=== PATIENT | female | born 1945 | race Caucasian/White ===

== ENCOUNTER → 2016-07-29 | Outpatient (CLI) | payer BC ==
--- NOTE | 2016-07-29 14:31 | KCIC ---
UPPER EXT JOINT WO CONT LEFT dated 07/29/2016 12:30 PM Indication: Worsening left wrist pain , pain for several weeks possible tenosynovitis Comparison: No comparison is available. Technique: Routine multiplanar multisequence imaging performed. No contrast administered. Findings: There is thickening and increased signal of the abductor pollicis longus and extensor pollicis brevis tendons near the level of the radial styloid. There is associated tendon sheath fluid. Moderate hypertrophic spurring at the first carpometacarpal joint with mild radial subluxation of the first metacarpal relative to the trapezium. Moderate hypertrophic changes are also noted at the scaphotrapezial joint. There is mild edema within the marrow of the trapezium and base of first metacarpal. Flexor and extensor tendons are otherwise intact. Carpal tunnel and Guyon's canal unremarkable. Mild degenerative change and chondral malacia at the radiocarpal joint and mid carpal row with scattered areas of subchondral cystic change. No significant joint effusion or loose body. There is mild thinning and surface irregularity of the TFCC central articular disc. No definite perforation. The styloid and foveal attachments are intact. The volar and dorsal radioulnar ligamentous attachments are intact. There is some increased signal at the membranous portion of the scapholunate ligament. The dorsal and volar ligamentous attachments are intact. No scapholunate dissociation. Lunotriquetral ligament grossly intact. IMPRESSION: 1. Tenosynovitis of the abductor pollicis longus and extensor pollicis brevis tendons near the level of the radial styloid. 2. 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 Adjacent osteophytes could be the source of tenosynovitis. 3. Chronic degeneration versus tear of the TFC central articular disc. The dorsal and volar radial ulnar ligaments are intact 4. Suspect degenerative perforation of the central membranous portion of the scapholunate ligament. No dorsal or volar ligament tear or scapholunate dissociation. Electronically signed by: Jay Gao MD (07/29/2016 2:27 PM)
== END | disposition home or self-care (01) ==
LOC: KCIC MRI 12:02
PROVIDERS: ATTEND Orthopaedic Surgery Sports Medicine
DX: M65.4 Radial styloid tenosynovitis [de Quervain] (principal); M18.9 Osteoarthritis of first carpometacarpal joint, unspecified
CPT/HCPCS: 73221

== ENCOUNTER 2017-03-19 14:38 | Emergency (ER) | payer BC | END 2017-03-19 15:10 | disposition home or self-care (01) | LOC: ER 14:38 | DX: B35.4 Tinea corporis (principal); F41.9 Anxiety disorder, unspecified; M19.90 Unspecified osteoarthritis, unspecified site; F32.9 Major depressive disorder, single episode, unspecified; E11.9 Type 2 diabetes mellitus without complications; I10 Essential (primary) hypertension; M79.7 Fibromyalgia; Z88.0 Allergy status to penicillin; Z90.49 Acquired absence of other specified parts of digestive tract; Z90.710 Acquired absence of both cervix and uterus; Z88.8 Allergy status to other drugs, medicaments and biological substances | CPT/HCPCS: 99282 ==

== ENCOUNTER 2017-07-02 19:07 | Emergency (ER) | payer BC | END 2017-07-02 19:58 | disposition home or self-care (01) | LOC: ER 19:07 | DX: J40 Bronchitis, not specified as acute or chronic (principal); I10 Essential (primary) hypertension; E11.9 Type 2 diabetes mellitus without complications; M79.7 Fibromyalgia; Z88.0 Allergy status to penicillin; Z88.8 Allergy status to other drugs, medicaments and biological substances | CPT/HCPCS: 99284 ==

== ENCOUNTER → 2018-03-28 | Outpatient (CLI) | payer BC ==
[2017-07-02 19:17] VITALS: BP 169/79
[~2018-03-28] MED LIST: ACET-704 PO; AZIT250T6 PO; BENZ100C PO
--- NOTE | 2018-03-28 17:12 | KCIC ---
Bilateral digital screening mammograms with 3-D tomosynthesis: Reason for examination: Routine screening. No previous exams for comparison. New baseline. Bilateral mammograms in CC and oblique projections were obtained with 2-D imaging and 3-D tomosynthesis imaging on a Siemens Inspiration unit and reviewed on the workstation. Interpretation was made with the benefit of CAD. The skin and nipples show no abnormalities. No abnormal axillary lymph nodes are seen. The breast parenchyma is predominantly fatty. (Breast density: Category A.) There are no dominant masses, suspicious calcifications or architectural distortion. Benign calcifications are present. Impression: No evidence of malignancy. Recommend routine screening. BI-RAD Category 2: Benign. "Our facility is accredited by the [employer] Mammography Program." This patient's information has been entered into a reminder system for the patient to be notified with the results of her examination and a target date for the next mammogram. Electronically signed by: Carmen Howard MD (03/28/2018 5:08 PM) [id number]
== END | disposition home or self-care (01) ==
LOC: KCIC MAMMO 14:57
PROVIDERS: ATTEND Physician Assistant Surgical
DX: Z12.31 Encounter for screening mammogram for malignant neoplasm of breast (principal)
CPT/HCPCS: 77063; 77067

== ENCOUNTER 2019-03-18 14:52 | Emergency (ER) | payer BC ==
[~2019-03-18] VITALS: Ht 157.5 cm; Wt 89.8 kg
[2019-03-18 15:30] VITALS: BP 145/69
[2019-03-18] MEDS ORDERED: BENZ100C PO (15:57)
[2019-03-18] MEDS ORDERED: PRED50TA PO (15:57)
[2019-03-18] MEDS ORDERED: AZIT250T6 PO (15:57)
--- NOTE | 2019-03-18 15:57 | PHYS DOC ---
Past Medical History Past Medical History: Arthritis (FRANKY GOFF APRN) Past Surgical History: Cholecystectomy, Hysterectomy (JASWINDERFRANKY Urban APRN) Alcohol Use: None Drug Use: None (DENVERFRANKY MARTHA) Adult General Chief Complaint Chief Complaint: SORE THROAT HPI HPI Patient is a 74 year old female who presents to the ED today with a sore throat that began one week ago. Patient is also complaining of a slight cough. Denies any fever or congestion. (DENVERFRANKY MARTHA) Review of Systems Review of Systems Constitutional: Denies fever or chills [] Eyes: Denies change in visual acuity, redness, or eye pain [] HENT: Reports sore throat. Denies nasal congestion Respiratory: Reports cough, denies shortness of breath [] Cardiovascular: No additional information not addressed in HPI [] GI: Denies abdominal pain, nausea, vomiting, bloody stools or diarrhea [] : Denies dysuria or hematuria [] Musculoskeletal: Denies back pain or joint pain [] Integument: Denies rash or skin lesions [] Neurologic: Denies headache, focal weakness or sensory changes [] All other systems were reviewed and found to be within normal limits, except as documented in this note. (JASWINDERFRANKY Urban APRN) Allergies Allergies Allergies Coded Allergies Type Severity Reaction Last Updated Verified Penicillins Allergy Intermediate 03/19/17 Yes duloxetine Allergy Intermediate 03/19/17 Yes pregabalin Allergy Intermediate 03/19/17 Yes (ELBA WALKER DO) Physical Exam Physical Exam Constitutional: Well developed, well nourished, no acute distress, non-toxic appearance. [] HENT: Normocephalic, atraumatic, bilateral external ears normal, oropharynx moist, no oral exudates, nose normal. Midline uvula, posterior pharynx with mild erythema, no exudate. +2 anterior cervical adenopathy. Eyes: PERRLA, EOMI, conjunctiva normal, no discharge. [] Neck: Normal range of motion, no tenderness, supple, no stridor. [] Cardiovascular:Heart rate regular rhythm, no murmur [] Lungs & Thorax: Bilateral breath sounds clear to auscultation [] Abdomen: Bowel sounds normal, soft, no tenderness, no masses, no pulsatile masses. [] Skin: Warm, dry, no erythema, no rash. [] Back: No tenderness, no CVA tenderness. [] Extremities: No tenderness, no cyanosis, no clubbing, ROM intact, no edema. [] Neurologic: Alert and oriented X 3, normal motor function, normal sensory function, no focal deficits noted. [] Psychologic: Affect normal, judgement normal, mood normal. [] (FRANKY GOFF APRN) Current Patient Data Vital Signs Vital Signs Date Time Temp Pulse Resp B/P (MAP) Pulse Ox O2 Delivery O2 Flow Rate FiO2 03/18/19 15:30 97.2 117 18 145/69 (94) 92 Room Air 97.2 (ELBA WALKER DO) Lab Values Laboratory Tests Test 03/18/19 15:33 Group A Streptococcus Rapid Positive (NEGATIVE) (ELBA WALKER DO) EKG EKG [] (FRANKY GOFF APRN) Radiology/Procedures Radiology/Procedures [] (FRANKY GOFF APRN) Course & Med Decision Making Course & Med Decision Making Pertinent Labs and Imaging studies reviewed. (See chart for details) This is a 74-year-old female patient with sore throat for one week. Positive rapid strep. Discharged with azithromycin. Tylenol/Motrin for pain or fever. Follow-up with primary care doctor in 1-2 weeks. (FRANKY GOFF APRN) Dragon Disclaimer Dragon Disclaimer This electronic medical record was generated, in whole or in part, using a voice recognition dictation system. (FRANKY GOFF APRN) Departure Departure Impression: Primary Impression: Strep throat Additional Impression: Cough Disposition: 01 HOME, SELF-CARE Condition: STABLE Referrals: KIMMY BECKFORD (PCP) follow up in 1 week Patient Instructions: Cough, Adult, [id number], Strep Throat Additional Instructions: You have strep infection. We put you on antibiotics, ensure you complete them. F ollow-up with your doctor in 1-2 weeks. Use saltwater gargles as needed for sore throat. Scripts Prednisone (PREDNISONE) 50 Mg Tablet 1 TAB PO DAILY, #5 TAB Prov: FRANKY GOFF APRN 03/18/19 Benzonatate (TESSALON PERLE) 100 Mg Capsule 1 CAP PO TID, #30 CAP Prov: FRANKY GOFF APRN 03/18/19 Azithromycin (AZITHROMYCIN TABLET) 250 Mg Tablet 1 PKG PO UD for 5 Days, #6 TAB 0 Refills 2 the first day followed by 1 for days 2-5 Prov: FRANKY GOFF APRN 03/18/19 Attending Signature Attending Signature I have reviewed the PA/FAMILY PRESERVATION OFFICER's note and plan of care. I was available for consultation as needed during the patient's visit in the emergency department. I agree with the clinical impression, plan, and disposition. (ELBA WALKER DO) Problem Qualifiers FRANKY GOFF APRN Mar 18, 2019 15:57 ELBA WALKER DO Mar 19, 2019 11:01
== END 2019-03-18 16:01 | disposition home or self-care (01) ==
LOC: ER 14:52
DX: J02.0 Streptococcal pharyngitis (principal); R05 Cough; Z88.0 Allergy status to penicillin; Z88.8 Allergy status to other drugs, medicaments and biological substances
CPT/HCPCS: 87880; 99283

== ENCOUNTER 2020-01-24 19:34 | Emergency (ER) | payer BC ==
[~2020-01-24] VITALS: Ht 157.5 cm; Wt 91.8 kg
[~2020-01-24 19:34] MED LIST changes: +PRED50TA PO
[2020-01-24] MEDS ORDERED: fentaNYL PF VIAL 100 MCG/2 ML VIAL IM ONE (20:00)
--- NOTE | 2020-01-24 20:24 | PHYS DOC ---
Past Medical History Past Medical History: Arthritis Past Surgical History: Cholecystectomy, Hysterectomy Smoking Status: Never Smoker Alcohol Use: None Drug Use: None General Adult EDM: Chief Complaint: MECHANICAL FALL HPI: HPI: Patient is a 75 year old female past medical history arthritis presents for mariposa luation of back and buttocks pain after a fall. Patient had a mechanical fall on . She fell directly onto her buttocks. Patient complains of lumbar midline lumbar pain as well as coccyx pain. Patient does have the discomfort that radiates down her left leg. Patient ambulated into the ER with a normal steady gait. She has had no loss of bowel or bladder she has no saddle anesthesia. Review of Systems: Review of Systems: Constitutional: Denies fever or chills. [] Eyes: Denies change in visual acuity. [] HENT: Denies nasal congestion or sore throat. [] Respiratory: Denies cough or shortness of breath. [] Cardiovascular: Denies chest pain or edema. [] GI: Denies abdominal pain, nausea, vomiting, bloody stools or diarrhea. [] : Denies dysuria. [] Musculoskeletal: Positive back pain positive leg pain positive buttocks pain Integument: Denies rash. [] Neurologic: Denies headache, focal weakness or sensory changes. [] Endocrine: Denies polyuria or polydipsia. [] Lymphatic: Denies swollen glands. [] Psychiatric: Denies depression or anxiety. [] Heart Score: Risk Factors: Risk Factors: DM, Current or recent (<one month) smoker, HTN, HLP, family his tory of CAD, obesity. Risk Scores: Score 0 - 3: 2.5% MACE over next 6 weeks - Discharge Home Score 4 - 6: 20.3% MACE over next 6 weeks - Admit for Clinical Observation Score 7 - 10: 72.7% MACE over next 6 weeks - Early Invasive Strategies Current Medications: Current Medications Medications (Trade) Dose Ordered Sig/[facility] Start Time Stop Time Status Last Admin Dose Admin Fentanyl Citrate (Fentanyl 2ml Vial) 50 mcg 1X ONCE 01/24/20 20:00 01/24/20 20:01 DC Allergies: Allergies: Allergies Coded Allergies Type Severity Reaction Last Updated Verified Penicillins Allergy Intermediate 03/19/17 Yes duloxetine Allergy Intermediate 03/19/17 Yes pregabalin Allergy Intermediate 03/19/17 Yes Physical Exam: PE: Constitutional: Well developed, well nourished, no acute distress, non-toxic appearance. [] HENT: Normocephalic, atraumatic, bilateral external ears normal, oropharynx moist, no oral exudates, nose normal. [] Eyes: PERRLA, EOMI, conjunctiva normal, no discharge. [] Neck: Normal range of motion, no tenderness, supple, no stridor. [] Cardiovascular:Heart rate regular rhythm, no murmur [] Lungs & Thorax: Bilateral breath sounds clear to auscultation [] Abdomen: Bowel sounds normal, soft, no tenderness, no masses, no pulsatile masses. [] Skin: Warm, dry, no erythema, no rash. [] Back: lower lumber midline tenderness, no CVA tenderness. [TTP left buttocks] Extremities: No tenderness, no cyanosis, no clubbing, ROM intact, no edema. [] Neurologic: Alert and oriented X 3, normal motor function, normal sensory function, no focal deficits noted. [] Psychologic: Affect normal, judgement normal, mood normal. [] Current Patient Data: Vital Signs: Vital Signs Date Time Temp Pulse Resp B/P (MAP) Pulse Ox O2 Delivery O2 Flow Rate FiO2 01/24/20 19:40 98.3 94 20 177/84 (115) 94 Room Air 98.3 EKG: EKG: [] Radiology/Procedures: Radiology/Procedures: [] Impression: IMPRESSION: 1. Small cortical defect along the anterior sacrum at the S3 level, may relate to a minimally displaced fracture. 2. Spondylotic changes lumbar spine as described above. Course & Med Decision Making: Course & Med Decision Making Pertinent Labs and Imaging studies reviewed. (See chart for details) [] Patient is evaluated for chief complaint. Work-up consisted of radiologic imaging. Treatment included fentanyl for pain. Radiologist impression nondisplaced sacral fracture. Patient will be discharged home on Tylenol with hydrocodone. Patient advised to take Tylenol and ibuprofen as needed for pain. Patient referred to her primary care physician and/or orthopedics. Santosh Disclaimer: Santosh Disclaimer: This electronic medical record was generated, in whole or in part, using a voice recognition dictation system. Departure Departure Impression: Primary Impression: Fall Additional Impressions: Sacral contusion Sacral fracture Disposition: 01 DC HOME SELF CARE/HOMELESS Condition: STABLE Patient Instructions: Fall Prevention and Home Safety Scripts Hydrocodone/Apap 5-325 (NORCO 5-325 TABLET) 1 Each Tablet 1 TAB PO Q4-6HRS, #20 TAB Prov: SJ SAMAYOA DO 01/24/20 SJ SAMAYOA DO Jan 24, 2020 20:24
--- NOTE | 2020-01-24 21:24 | RAD ---
Exam: Lumbar spine 2 views. Sacrum 2 views INDICATION: Fall, pain TECHNIQUE: Frontal and lateral views of the lumbar and cervical spine. Comparisons: None FINDINGS: Lumbar spine: Vertebral body heights and alignment are well-maintained. Bilateral facet arthropathy is noted in the lumbar spine greatest at L4-L5 and L5-S1. Visualized paraspinal soft tissues are unremarkable. Sacrum: Small cortical defect along the anterior sacrum at the S3 level. Diffuse osteopenia. Visualized soft tissues are unremarkable. IMPRESSION: 1. Small cortical defect along the anterior sacrum at the S3 level, may relate to a minimally displaced fracture. 2. Spondylotic changes lumbar spine as described above. Electronically signed by: Jorge Gray MD (01/24/2020 9:21 PM) [facility]
[2020-01-24 21:30] VITALS: BP 160/74
[2020-01-24] MEDS ORDERED: HYDR-3164 PO (21:32)
== END 2020-01-24 21:55 | disposition home or self-care (01) ==
LOC: ER 19:34
DX: S32.19XA Other fracture of sacrum, initial encounter for closed fracture (principal); M85.88 Other specified disorders of bone density and structure, other site; Z90.49 Acquired absence of other specified parts of digestive tract; Z90.710 Acquired absence of both cervix and uterus; W18.39XA Other fall on same level, initial encounter; Y93.89 Activity, other specified; Y92.89 Other specified places as the place of occurrence of the external cause; Y99.8 Other external cause status
CPT/HCPCS: 72100; 72220; 96372; 99285; J3010